=== PATIENT | female | born 1980 | race Caucasian/White ===

== ENCOUNTER 2020-09-22 10:37 | Outpatient (CLI) | payer OTHER, SELFPAY | END 2020-09-22 10:38 | disposition home or self-care (01) | LOC: ANHCOVIDVC 10:37 | PROVIDERS: PCP Internal Medicine | DX: Z23 Encounter for immunization (principal) | CPT/HCPCS: 0001A; 91300 ==

== ENCOUNTER 2020-10-13 10:30 | Outpatient (CLI) | payer OTHER, SELFPAY | END 2020-10-13 10:31 | disposition home or self-care (01) | LOC: ANHCOVIDVC 10:30 | PROVIDERS: PCP Internal Medicine | DX: Z23 Encounter for immunization (principal) | CPT/HCPCS: 0002A; 91300 ==

== ENCOUNTER 2021-04-06 11:34 | Emergency (ER) | payer OTHER, SELFPAY ==
[2021-04-06 11:40] VITALS: BP 135/93; PULSE 87; RESP 16; TEMP 36.3; O2SAT 100
--- NOTE | 2021-04-06 11:52 | ED.URI ---
HPI - URI/Sore Throat General Chief Complaint: Upper Respiratory Infection Stated Complaint: sinus issues Source: patient Mode of arrival: ambulatory Limitations: no limitations History of Present Illness HPI Narrative: Patient is a 40-year-old female who presents complaining of cough, congestion and sinus pressure x8 or 9 days. She reports chills and body aches approximately 3 to 4 days ago which have resolved at this time. She denies fever. She reports vaccinated for Covid x2. She reports having 2 rapid negative Covid test and a negative PCR. She reports that she takes wwjy-[id number] allergy relief daily and has also currently been taking Mucinex. She denies significant medical history. She denies all other complaints at this time. MD elicited complaint: cough, rhinorrhea, nasal congestion and sinus pain Related Data Home Medications Medication Instructions Recorded Confirmed levothyroxine [Synthroid] 50 mcg PO DAILY 04/06/21 04/06/21 norethindrone-e.estradiol-iron 1 tablet PO DAILY 04/06/21 04/06/21 [08/05 (28)] Allergies Allergy/AdvReac Type Severity Reaction Status Date / Time acetaminophen Allergy Severe Swelling, Verified 04/06/21 11:52 THROAT SWELLS Review of Systems Review of Systems: CONSTITUTIONAL: Denies fever, chills, or sweats. EYES: Denies visual changes, redness, or discharge. ENT: Reports rhinorrhea, congestion and sinus pressure CARDIOVASCULAR: Denies chest pain, palpitations, or edema. RESPIRATORY: Reports cough, denies dyspnea. GASTROINTESTINAL: Denies abdominal pain, nausea, vomiting, or diarrhea. GENITOURINARY: Denies dysuria or hematuria. SKIN: Denies rash or itching. MUSCULOSKELETAL: Denies back pain, joint pain, or myalgia. NEUROLOGIC: Denies headache, numbness, dizziness, or weakness. PSYCHIATRIC: Denies anxiety or depression. [facility] Past Medical History Medical History Cholecystectomy planned Family History Family History Father Hypertension Family history of heart disease in male family member before age 55 Family history of cardiovascular disease Other Family history of malignant neoplasm Family history of malignant neoplasm of breast in first degree relative Social History Social History Smoking status: Never smoker Alcohol intake: never Substance use: never Living arrangements: with family Comments At the time of signature, I have reviewed and agree with nursing past medical, surgical, social, and family history unless otherwise noted. Please see nursing chart for further information. There is no relevant family history pertinent to the presenting complaint. Exam Narrative: GENERAL: Well-appearing, well-nourished, and in no acute distress. HEAD: Normocephalic, atraumatic. EYES: EOMI. No redness or drainage. Conjunctiva are normal. ENT: Mucous membranes pink and moist. Nares clear. No rhinorrhea. TMs normal bilaterally. Throat with mild erythema. Uvula midline. Maxillary sinus tenderness with palpation NECK: AROM. Supple. No lymphadenopathy. CHEST: No respiratory distress. HEART: Regular rate and rhythm. EXTREMITIES: Normal range of motion. No edema. SKIN: Warm, dry, no rash. NEURO: No focal deficits. Alert and oriented x3. Gait steady. PSYCH: Normal affect. No signs of depression or anxiety. MDM - URI/Sore Throat MDM Narrative Medical decision making narrative: Patient most likely has sinusitis. Discussed with patient treating sinusitis as symptoms have been ongoing x8 to 9 days. Patient to continue taking daily allergy medications and to also add Flonase. Patient to start taking antibiotic. Patient agrees with plan of care. Patient is stable for discharge home with outpatient follow-up as discussed. Differential Diagnosis Differential diagnosis: Likely uppe
== END 2021-04-06 12:03 | disposition home or self-care (01) ==
PROVIDERS: Emergency Provider Nurse Practitioner; PCP Internal Medicine
DX: J32.9 Chronic sinusitis, unspecified (principal)
CPT/HCPCS: 87081; 87880; 99213; G0463

== ENCOUNTER 2021-04-15 14:02 | Outpatient (CLI) | payer OTHER, SELFPAY ==
--- NOTE | ~2021-04-15 | MMUS_ITS ---
EXAMINATION: MM diagnostic serafin BI w roxana, US breast LT limited HISTORY: Breast pain TECHNIQUE: Additional 3-D tomosynthesis images of the breasts were performed and synthetic 2-D images were generated. CAD analysis was submitted and interpreted. High resolution Limited left breast ultr asound was performed. COMPARISON: None BREAST PARENCHYMAL COMPOSITION: Breast composed of scattered areas of fibroglandular density. FINDINGS: MAMMOGRAPHIC FINDINGS: There are no suspicious masses, calcifications or architectural distortion in either breast to sugges t malignancy. ULTRASOUND: Left breast ultrasound: Normal heterogeneous echotexture without focal solid or cystic mass. IMPRESSION: 1. No evidence for malignancy in either breast. 2. Routine yearly screening mammogram and regular clinical breast examination are recommended. BI-RADS Category 1: Negative Reviewed, dictated and finalized at location A. IMPRESSION: 1. No evidence for malignancy in either breast. 2. Routine yearly screening mammogram and regular clinical breast examination a re recommended. BI-RADS Category 1: Negative
== END 2021-04-15 14:03 | disposition home or self-care (01) ==
PROVIDERS: PCP Internal Medicine; Visit Provider Nurse Practitioner Obstetrics & Gynecology
DX: N64.4 Mastodynia (principal)
CPT/HCPCS: 76642; 77062; 77066; G0279

== ENCOUNTER 2022-05-02 10:35 | Outpatient (CLI) | payer OTHER, SELFPAY ==
--- NOTE | ~2022-05-02 | MM_ITS ---
EXAMINATION: MM screening [facility] BI w roxana HISTORY: Screening TECHNIQUE: Craniocaudal and mediolateral oblique 3-D tomosynthesis images were obtained and synthetic 2-D images were generated. CAD analysis was submitted and interpreted. COMPARISON: 04/15/2021 BREAST PARENCHYMAL COMPOSITION: Breast composed of scattered areas of fibroglandular density FINDINGS: There is a mass in the upper outer quadrant of the left breast which is new compared with p rior examination. The right breast is stable without evidence for malignancy. IMPRESSION: 1. New left breast mass, upper outer quadrant, posterior third. 2. Additional mammographic views and possible breast ultrasound are recommended. BI-RADS Category 0: Incomplete: Needs additional imaging evaluation. Reviewed, dictated and finalized at location A. IMPRESSION: 1. New left breast mass, upper outer quadrant, posterior third. 2. Additional mammographic views and possible breast ultrasound are recommended . BI-RADS Category 0: Incomplete: Needs additional imaging evaluation.
== END 2022-05-02 10:36 | disposition home or self-care (01) ==
LOC: ANHIMG 10:40
PROVIDERS: PCP Internal Medicine; Visit Provider Nurse Practitioner Obstetrics & Gynecology
DX: Z12.31 Encounter for screening mammogram for malignant neoplasm of breast (principal); R92.8 Other abnormal and inconclusive findings on diagnostic imaging of breast
CPT/HCPCS: 77063; 77067

== ENCOUNTER 2022-05-12 12:36 | Outpatient (CLI) | payer OTHER, SELFPAY ==
--- NOTE | ~2022-05-12 | MMUS_ITS ---
EXAMINATION: MM diagnostic serafin LT w roxana, US breast LT limited HISTORY: Left breast mass on screening mammogram TECHNIQUE: Additional 3-D tomosynthesis images of the left breast were performed and synthetic 2-D im ages were generated. CAD analysis was submitted and interpreted. High resolution limited left breast ultrasound was performed. COMPARISON: 05/02/2022, 04/15/2021 FINDINGS: MAMMOGRAPHIC FINDINGS: There is a 10 mm oval, equal density mass with indistinct margins at the 3:00 location in the posteri or third of the breast 7 cm from the nipple. ULTRASOUND: There is an 8 mm x 7 mm oval, hypoechoic mass with possible microlobulated margins, posterior acousti c enhancement, and no internal vascularity at the 2:00 location 5 cm from the nipple. IMPRESSION: 1. Indeterminate left breast mass. 2. Ultrasound-guided biopsy is recommended. BI-RADS category 4, suspicious findings. Reviewed, dictated and finalized at location A. IMPRESSION: 1. Indeterminate left breast mass. 2. Ultrasound-guided biopsy is recommended. BI-RADS category 4, suspicious findings.
== END 2022-05-12 12:37 | disposition home or self-care (01) ==
PROVIDERS: PCP Internal Medicine; Visit Provider Nurse Practitioner Obstetrics & Gynecology
DX: R92.8 Other abnormal and inconclusive findings on diagnostic imaging of breast (principal)
CPT/HCPCS: 76642; 77061; 77065; G0279

== ENCOUNTER 2022-10-05 16:22 | Outpatient (CLI) | payer OTHER, SELFPAY ==
--- NOTE | ~2022-10-05 | US_ITS ---
EXAMINATION: US venous doppler LE RT DATE: 10/05/2022 17:12 INDICATION: Right lower limb pain and swelling TECHNIQUE: Grayscale ultrasound images without and with compression and Doppler ultrasound images of the right lower extremity veins were obtained. COMPARISON: None. FINDINGS: Noncompressible superficial venous thrombosis in the right lesser saphenous vein and at the distal ri ght greater saphenous vein at the ankle overlying the medial malleolus. The visualized portions of ri ght common femoral vein, profunda (deep) femoral vein, femoral vein, popliteal vein, peroneal trunk, gastrocnemius vein and greater saphenous vein outflow are patent. The right posterior tibial and kristen sharon veins at the calf were unable to be visualized. IMPRESSION: 1. No deep venous thrombosis in the right lower limb. 2. Superficial venous thrombosis in the right lesser saphenous vein at the calf and right greater sap henous vein at the medial ankle. Dr. Vazquez discussed these findings with Dr. Montiel at 5:25 PM. Reviewed, dictated and finalized at location A. IMPRESSION: 1. No deep venous thrombosis in the right lower limb. 2. Superficial venous thrombosis in the right lesser saphenous vein at the calf and right greater saphenous vein at the medial ankle. Dr. Vazquez discussed t hese findings with Dr. Montiel at 5:25 PM.
== END 2022-10-05 16:23 | disposition home or self-care (01) ==
PROVIDERS: PCP Internal Medicine
DX: I82.811 Embolism and thrombosis of superficial veins of right lower extremity (principal)
CPT/HCPCS: 93971

== ENCOUNTER 2022-10-13 14:50 | Outpatient (CLI) | payer OTHER, SELFPAY ==
--- NOTE | ~2022-10-13 | US_ITS ---
EXAMINATION: US venous doppler LE RT DATE: 10/13/2022 15:33 INDICATION: Right lower limb swelling TECHNIQUE: Oliver scale images without and with compression and Doppler images of the right lower extre mity veins were obtained. COMPARISON: 10/05/2022 FINDINGS: The right common femoral vein, profunda femoral vein, femoral vein, popliteal vein, peronea l trunk, posterior tibial veins are patent. There is unchanged superficial venous thrombosis in the r ight lesser saphenous and greater saphenous veins. IMPRESSION: 1. Unchanged superficial venous thrombosis in the right lesser saphenous and greater saphenous veins. . No evidence of deep venous thrombosis. Reviewed, dictated and finalized at location F. IMPRESSION: 1. Unchanged superficial venous thrombosis in the right lesser saphenous and gr eater saphenous veins.. No evidence of deep venous thrombosis.
== END 2022-10-13 14:51 | disposition home or self-care (01) ==
PROVIDERS: PCP Internal Medicine
DX: R22.41 Localized swelling, mass and lump, right lower limb (principal); I82.491 Acute embolism and thrombosis of other specified deep vein of right lower extremity
CPT/HCPCS: 93971

== ENCOUNTER 2022-10-25 10:58 | Outpatient (CLI) | payer OTHER, SELFPAY ==
--- NOTE | ~2022-10-25 | US_ITS ---
EXAMINATION: US venous doppler LE RT DATE: 10/25/2022 11:39 INDICATION: Right lower limb swelling. TECHNIQUE: Grayscale ultrasound images without and with compression and Doppler ultrasound images of the right lower extremity veins were obtained. COMPARISON: Ultrasound 10/13/2022 FINDINGS: The visualized portions of right common femoral vein, profunda (deep) femoral vein, femoral vein, pop liteal vein, peroneal veins, and posterior tibial veins are patent. There is thrombus in right greate r and lesser saphenous veins. IMPRESSION: 1. No deep venous thrombosis. 2. Superficial vein thrombosis again seen involving right greater and lesser saphenous veins. Reviewed, dictated and finalized at location A. IMPRESSION: 1. No deep venous thrombosis. 2. Superficial vein thrombosis again seen involving right greater and lesser sa phenous veins.
== END 2022-10-25 10:59 | disposition home or self-care (01) ==
LOC: ANHIMG 11:04
PROVIDERS: PCP Internal Medicine
DX: I82.811 Embolism and thrombosis of superficial veins of right lower extremity (principal)
CPT/HCPCS: 93971